=== PATIENT | male | born 1940 | race Caucasian/White ===

== ENCOUNTER → 2023-06-24 | Outpatient (CLI) | payer MEDICARE ==
[~2023-06-24] MED LIST: ASPI-556 PO; BENA40TA67 PO; LEVO-70 PO; TRAM-355 PO
== END | disposition home or self-care (01) ==
LOC: RAH 15:05
PROVIDERS: ATTEND Family Medicine Adult Medicine
DX: N50.3 Cyst of epididymis (principal); D29.20 Benign neoplasm of unspecified testis
CPT/HCPCS: 76870